=== PATIENT | female | born 2000 ===

== ENCOUNTER 2022-05-01 21:47 | Emergency (ER) | payer MEDICAID ==
[~2022-05-01] VITALS: Ht 157.5 cm; Wt 58.0 kg
[2022-05-01 22:03] VITALS: BP 108/69
== END 2022-05-02 01:19 | disposition left against medical advice (07) ==
LOC: ER 21:47
DX: Z53.21 Procedure and treatment not carried out due to patient leaving prior to being seen by health care provider (principal)